=== PATIENT | female | born 1990 | race Caucasian/White ===

== ENCOUNTER 2023-11-22 12:39 | Emergency (ER) | payer MEDICAID, SELFPAY ==
[2023-11-22 12:45] VITALS: BP 116/57; PULSE 112; TEMP 36.3; BMI 21.4
[2023-11-22 13:16] LABS: Basophils % 0.3 %; Eosinophils % 0.2 %; Lymphocytes # 1.5 10^3/uL (0.8-4.8); Mean Corpuscular HGB Conc 30.6 g/dL (30-55); Mean Corpuscular Hemoglobin 26.8 pg (27-33); Mean Corpuscular Volume 87.4 fl (85-98); Mean Platelet Volume 8.7 fL (7.4-10.4); Monocytes # 0.8 10^3/uL (0.2-0.9); Neutrophils # 8.59 10^3/uL (1.8-7.7); Neutrophils % 78.1 %; Nucleated Red Blood Cells % 0 %; Platelet Count 263 10^3/cmm (157-399); Red Blood Count 3.66 10^6/uL (3.85-5.65); Red Cell Distribution Width 21.3 % (12.1-15.1); White Blood Count 10.99 10^3/uL (3.29-11.43)
--- NOTE | 2023-11-22 13:17 | ED_ITS ---
HPI - Weakness 2 General: Chief complaint: Weakness Stated complaint: leg weakness Time Seen by Provider: 11/22/23 12:40 History of Present Illness: 33-year-old female presents to the emerg ency department with complaints of feeling increased weakness and fatigue worsening since yesterday. She states she feels more weak in her legs compared to yesterday. She was seen yesterday at [facility] and was found to have low potassium and given potassium infusions as well as magnesium. Patient was also advised that she had a urinary tract infection at that time. Patient does appear to be very pale but states she has heavy irregular menstrual cycles. She states that she also drinks 5-6 times a week and when she does it is 5 or 6 shots of whiskey. She also states that she smokes as well. She denies chest pain, nausea or vomiting dizziness or lightheaded feeling. She does endorse several episodes of diarrhea over the previous 3 to 4 days, otherwise she states she just feels overall weakness. Review of Systems 2 General: Reports: 10 or more systems reviewed and unremarkable except in HPI and below Const: Reports: fatigue and malaise GI: Reports: diarrhea PFSH ED 2 PFSH: Surgical History (Updated 08/19/23 @ 10:58 by LYNDSEY Keys) Status post tubal ligation Family History Mother Hypertension Social History Smoking and tobacco/nicotine status: current every day tobacco/nicotine user Physical Exam 2 Narrative: EXAM NARRATIVE: Constitutional: the patient appears well nourished and with normal development. Vital signs reviewed as documented. HENMT: Normocephalic, atraumatic. External ears normal appearance without drainage. Nose without drainage, normal appearance. Mucus membranes moist. Neck is supple, No jugular venous distension, trachea is midline, no appreciable carotid bruits. No lymphadenopathy. No meningeal signs. Flexion, extension and lateral rotation is without pain. Eyes: Pupils are equal, round, reactive to light and accommodation. No scleral icterus. Extra-ocular movement are intact. Thorax is symmetrical and with equal rise and fall with respirations. Resp: Lungs are clear to auscultation. No wheezes, rales, crackles or ronchi at present. Cardio: Regular rate and rhythm. Positive S1, S2. No appreciable murmurs, rubs or gallops. GI: Abdominal exam reveals normal bowel sounds to all quadrants. No organomegaly. No obvious palpable masses noted. No hepatomegally appreciated. Soft, non-tender to palpation. Extremity: Extremities are non-edematous and both femoral and pedal pulses are 2+ and equal bilaterally. Moves all extremities well, sensation in all extremities. Neuro: Alert and oriented x4, person, place, time and situation. Cranial nerves II through XII are grossly intact, there is no focal neurological deficits that I can appreciate at present. Motor strength in the upper and lower extremities are equal and bilateral 5/5. Psych: Cooperative, calm, normal thought process, appropriate judgment. Skin: No lesions, rashes. No gross abnormalities noted. Back: Symmetrical, no obvious deformity, No CVA tenderness Course 2 Reevaluation(s): Reevaluation #1: I had an extensive discussion with the patient approximately 25 minutes regarding side effects of alcohol abuse and use. 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 I have provided her Rocephin as well as IV Zofran. I will discharge the patient and have her follow-up primary care provider. Time: 15:25 Vital Signs: Vital signs: Vital Signs Temperature 97.4 F L 11/22/23 12:45 Pulse Rate 118 H 11/22/23 15:58 Blood Pressure 93/52 11/22/23 15:58 Pulse Oximetry 100 11/22/23 15:58 Oxygen Delivery Me thod Room Air 11/22/23 12:45 MDM - Weakness Medical Decision Making Will obtain laboratory evaluation to include a CBC, CMP, urinalysis, magnesium. An EKG and lipase given the amount that the patient reported that she drinks. Medical Records I reviewed the patient's medical records. Lab Data I reviewed the patient's lab results. 11/22/23 13:10 11/22/23 13:10 Laboratory Results WBC 10.99 10^3/uL (3.29-11.43) 11/22/23 13:10 RBC 3.66 10^6/uL (3.85-5.65) L 11/22/23 13:10 Hgb 9.80 g/dL (11.27-16.99) L 11/22/23 13:10 Hct 32.0 % (36-47) L 11/22/23 13:10 MCV 87.4 fl (85-98) 11/22/23 13:10 MCH 26.8 pg (27-33) L 11/22/23 13:10 MCHC 30.6 g/dL (30-55) 11/22/23 13:10 RDW 21.3 % (12.1-15.1) H 11/22/23 13:10 Plt Count 263 10^3/cmm (157-399) 11/22/23 13:10 MPV 8.7 fL (7.4-10.4) 11/22/23 13:10 Neut % (Auto) 78.1 % 11/22/23 13:10 Lymph % (Auto) 14.0 % 11/22/23 13:10 [place] % (Auto) 7.0 % 11/22/23 13:10 Eos % (Auto) 0.2 % 11/22/23 13:10 Baso % (Auto) 0.3 % 11/22/23 13:10 Neut # (Auto) 8.59 10^3/uL (1.8-7.7) H 11/22/23 13:10 Lymph # (Auto) 1.5 10^3/uL (0.8-4.8) 11/22/23 13:10 [place] # (Auto) 0.8 10^3/uL (0.2-0.9) 11/22/23 13:10 Eos # (Auto) 0.0 10^3/uL (0.0-0.8) 11/22/23 13:10 Baso # (Auto) 0.0 10^3/uL (0.0-0.1) 11/22/23 13:10 Nucleated RBC % (auto) 0 % 11/22/23 13:10 Nucleated RBCs # 0.0 /100WBC 11/22/23 13:10 Sodium 134 mmol/L (136-145) L 11/22/23 13:10 Potassium 3.1 mmol/L (3.5-5.1) L 11/22/23 13:10 Chloride 98 mmol/L (98-107) 11/22/23 13:10 Carbon Dioxide 12 mmol/L (22-29) L 11/22/23 13:10 Anion Gap 27.1 (5-19) H 11/22/23 13:10 BUN 5 mg/dL (6-20) L 11/22/23 13:10 Creatinine 0.5 mg/dL (0.5-0.9) 11/22/23 13:10 GFR Calculation 142.1 mL/min (90-130) H 11/22/23 13:10 Glucose 120 mg/dL (65-115) H 11/22/23 13:10 Calculated Osmolality 276 mOsm/kg (285-295) L 11/22/23 13:10 Calcium 8.8 mg/dL (8.5-10.5) 11/22/23 13:10 Magnesium 1.9 mg/dL (1.7-2.3) 11/22/23 13:10 Total Bilirubin 0.9 mg/dL (0.15-1.2) 11/22/23 13:10 AST 52 U/L (0-32) H 11/22/23 13:10 ALT 36 U/L (0-33) H 11/22/23 13:10 Alkaline Phosphatase 101 U/L (35-105) 11/22/23 13:10 Total Protein 7.2 g/dL (6.6-8.7) 11/22/23 13:10 Albumin 3.5 g/dL (3.5-5.2) 11/22/23 13:10 Globulin 3.7 g/dL (1.3-4.6) 11/22/23 13:10 Lipase 49 U/L (13-60) 11/22/23 13:10 HCG, Qual Negative (Negative) 11/22/23 13:51 Urine Color Yellow (Yellow) 11/22/23 13:51 Urine Appearance Sl hazy (CLEAR) A 11/22/23 13:51 Urine pH 5 (5-7) 11/22/23 13:51 Ur Specific [place] 1.025 (1.005-1.030) 11/22/23 13:51 Urine Protein Trace (Negative) 11/22/23 13:51 Urine Glucose (UA) Norm (Normal) 11/22/23 13:51 Urine Ketones 2+ (Negative) H 11/22/23 13:51 Urine Blood 3+ (Negative) H 11/22/23 13:51 Urine Nitrate Negative (Negative) 11/22/23 13:51 Urine Bilirubin 1+ (Negative) H 11/22/23 13:51 Urine Urobilinogen 4 mg/dL (Negative) H 11/22/23 13:51 Ur Leukocyte Esterase 2+ (Negative) H 11/22/23 13:51 Urine RBC 5-10 /hpf (0-2) H 11/22/23 13:51 Urine WBC 25-40 /hpf (0-5) H 11/22/23 13:51 Ur Squamous Epith Cells 5-10 /hpf (0-5) H 11/22/23 13:51 Amorphous Sediment Trace /hpf 11/22/23 13:51 Urine Bacteria 2+ /hpf (NONE) H 11/22/23 13:51 Urine Mucus Trace /hpf 11/22/23 13:51 Urine Opiates Screen Negative ng/mL (Negative) 11/22/23 13:51 Ur Barbiturates Screen Negative ng/mL (Negative) 11/22/23 13:51 Ur Phencyclidine Scrn Negative ng/mL (Negative) 11/22/23 13:51 Ur Amphetamines Screen Negative ng/mL (Negative) 11/22/23 13:51 U Benzodiazepines Scrn Negative ng/mL (Negative) 11/22/23 13:51 Urine Cocaine Screen Negative ng/mL (Negative) 11/22/23 13:51 U Marijuana (THC) Screen Negative ng/mL (Negative) 11/22/23 13:51 Ethyl Alcohol 46 mg/dL (0-10) H 11/22/23 13:10 No radiology studies performed this visit Discharge Plan Discharge Patient Disposition: Home Clinical Impression: Alcohol abuse UTI (urinary tract infection) Qualifiers: Urinary tract infection type: acute cystitis Hematuria presence: without hematuria Qualified Code(s): N30.00 - Acute cystitis without hematuria Condition: Stable Prescriptions: New ondansetron HCl 4 mg tablet 4 mg PO Q12H 5 Days Qty: 10 0RF Discharge Orders: Discharge ED (Routine); Ordered 11/22/23 Ordered By: Keshav Esparza Referrals: Aditya Swain MD [Primary Care Provider] - Discharge Diet: Advance as tolerated Discharge Activity: Resume usual activity Patient Instructions: Opioid Safety, Pain Management Activity Restrictions/Additional Instructions: Activity Restrictions/Additional Instructions: Thank you for choosing [facility] for your healthcare needs today. Please realize that you were seen in the Emergency Department and that we are providing you with an emergency medical screening exam and this may not be a complete and all inclusive of all the testing and or medical work-up that you may need to determine your ailment or severity of your illness. It is very important that you follow-up as instructed with your Primary care provider or Specialist for additional evaluation and to discuss your medical treatment plan. You may return to the Emergency Department should you have concerns or if your condition changes or worsens in any way. Coding Level of Care Code ED Book Binder for Adalid Viera
[2023-11-22 13:20] VITALS: BP 102/51; PULSE 118; O2SAT 95
--- NOTE | 2023-11-22 13:27 | ECG_ITS ---
[facility] Test Date: 2023-11-22 Pat Name: Neema Toledo Department: Room: Gender: Female Supervisor Filling And Packing: : [id number] Requested By: Keshav Esparza Order Number: [id number] Bryant MD: Dillon Weinberg M.D. Measurements Intervals [place] Rate: 110 P: 62 MA: 139 QRS: 62 QRSD: 86 T: 66 QT: 382 QTc: 517 Interpretive Statements SINUS TACHYCARDIA POSSIBLE LEFT ATRIAL ENLARGEMENT [-0.1mV P-WAVE IN V1/V2] POSSIBLE RIGHT VENTRICULAR CONDUCTION DELAY [RSR (QR) IN V1/V2] No previous ECG available for comparison Electronically Signed On 11-22-2023 15:43:36 CALCULUS TEACHER by Dillon Weinberg M.D. [id number]
[2023-11-22 13:34] LABS: Alanine Aminotransferase 36 U/L (0-33); Albumin Level 3.5 g/dL (3.5-5.2); Alkaline Phosphatase 101 U/L (35-105); Anion Gap 27.1 (5-19); Aspartate Amino Transferase 52 U/L (0-32); Blood Urea Nitrogen 5 mg/dL (6-20); Calcium 8.8 mg/dL (8.5-10.5); Carbon Dioxide 12 mmol/L (22-29); Chloride 98 mmol/L (98-107); Globulin 3.7 g/dL (1.3-4.6); Glomerular Filtration Rate 142.1 mL/min (90-130); Glucose 120 mg/dL (65-115); Magnesium 1.9 mg/dL (1.7-2.3); Osmolality Calculated 276 mOsm/kg (285-295); Potassium 3.1 mmol/L (3.5-5.1); Sodium 134 mmol/L (136-145); Total Bilirubin 0.9 mg/dL (0.15-1.2); Total Protein 7.2 g/dL (6.6-8.7)
[2023-11-22 13:41] LABS: Alcohol Level 46 mg/dL (0-10); Lipase 49 U/L (13-60)
[2023-11-22] MEDS: magnesium oxide 400 mg tablet PO (13:56)
[2023-11-22] MEDS: potassium chloride ER 20 mEq Tablet 40 MEQ PO (13:56)
[2023-11-22 14:00] VITALS: BP 101/54; PULSE 109; O2SAT 95
[2023-11-22 14:13] LABS: Amphetamines Screen Urine Negative (Negative); Barbiturates Screen Urine Negative (Negative); Benzodiazepines Screen Urine Negative (Negative); Cocaine Screen Urine Negative (Negative); HCG Qualitative Urine. Negative (Negative); Opiate Screen Urine Negative (Negative); PCP Screen Urine Negative (Negative); THC Screen Urine Negative (Negative)
[2023-11-22 14:20] LABS: Add Urine Microscopic? YES; Blood Urine 3+ (Negative); Glucose Urine UA Norm (Normal); Ketones Urine 2+ (Negative); Leukocyte Esterase Urine 2+ (Negative); Nitrate Urine Negative (Negative); Protein Urine Trace (Negative); Specific Gravity, Urine 1.025 (1.005-1.030); Urine Appearance SL Hazy (CLEAR); Urine Color Yellow (Yellow); Urobilinogen Urine 4 mg/dL (Negative); pH Urine 5 (5-7)
[2023-11-22 14:21] LABS: Amorphous Sediment Urine TRACE /hpf; Bacteria Urine 2+ /hpf; Bilirubin Urine 1+ (Negative); Mucus Urine TRACE /hpf; WBC Urine 25-40 /hpf (0-5)
[2023-11-22 14:22] LABS: Add Urine Culture? Yes
[2023-11-22 14:30] VITALS: BP 91/48; PULSE 116; O2SAT 99
[2023-11-22 15:00] VITALS: BP 98/50; PULSE 121; O2SAT 100
[2023-11-22] MEDS: ondansetron 2 mg/ML SDV 2 mL 4 MG IVP (15:12)
[2023-11-22] MEDS: cefTRIAXone 1,000 MG in sodium chloride 0.9% (plus) 50 ML 100 MG IV (15:13)
[2023-11-22 15:58] VITALS: BP 93/52; PULSE 118; O2SAT 100
== END 2023-11-22 15:59 | disposition home or self-care (01) ==
PROVIDERS: Emergency Provider Internal Medicine; PCP Family Medicine
DX: N30.00 Acute cystitis without hematuria (principal); F10.10 Alcohol abuse, uncomplicated; Y90.2 Blood alcohol level of 40-59 mg/100 ml; Z72.0 Tobacco use
CPT/HCPCS: 36415; 80053; 80306; 80307; 81001; 81025; 83690; 83735; 85025; 87086; 93005; 96374; 96375; 99284; J0696; J2405

== ENCOUNTER → 2024-02-09 09:56 | Outpatient (BNVA) | payer MEDICAID, SELFPAY | PROVIDERS: PCP Family Medicine; Visit Provider Nurse Practitioner Family | DX: D64.9 Anemia, unspecified (principal); E87.6 Hypokalemia; Z78.9 Other specified health status; N92.1 Excessive and frequent menstruation with irregular cycle | CPT/HCPCS: 80053; 85025; 87070; 87205; 88175 ==

== ENCOUNTER → 2025-04-02 10:54 | Outpatient (BNVA) | payer MEDICAID, SELFPAY | PROVIDERS: PCP Nurse Practitioner Family; Visit Provider Nurse Practitioner Family | DX: D64.9 Anemia, unspecified (principal); E87.6 Hypokalemia; I10 Essential (primary) hypertension; R53.83 Other fatigue | CPT/HCPCS: 80053; 80061; 84443; 85025 ==

== ENCOUNTER → 2025-05-15 12:00 | Outpatient (BNVA) | payer MEDICAID, SELFPAY | PROVIDERS: PCP Nurse Practitioner Family; Visit Provider Nurse Practitioner Family | DX: D64.9 Anemia, unspecified (principal) | CPT/HCPCS: 82607; 83550; 85025 ==

== ENCOUNTER 2025-05-25 15:39 | Outpatient (CLI) | payer MEDICAID, SELFPAY ==
--- NOTE | 2025-05-25 16:15 | US_ITS ---
WS: [id number] US pelv w/transvag [id number] HISTORY: N92.1 - Excessive and frequent menstruation with irregula... COMPARISON: 10/02/2019 Uterus: 7.2 cm x 5.8 cm x 3.9 cm. Normal size anteverted uterus. No fibroid or mass. Endometrium: 1.8 cm. Fluid along the endometrial canal. Focal area of endometrial thickening towards the fundal portion of the endometrium. Thickening of the endometrial lining is of increased echogenicity with a few cystic components. The remaining endometrium is very thin and atrophic. Right ovary: 3.2 cm x 1.9 cm x 2.5 cm. Normal size and vascularity, no cystic or solid masses. Left ovary: Not identified. Small to moderate amount of free fluid in the cul-de-sac is slightly more than normal. US/US pelv w/transvag [id number] IMPRESSION: 1. Asymmetric focal thickening involving the endometrium, thickening is toward s the fundal portion of the endometrium. The remaining endometrium is atrophic. Recommend direct visualization and possible biopsy secondary to the asymmetry. This is new since 10/02/2019. 2. LEFT ovary not identified. 3. Slightly more than physiologic free fluid in the pelvis. This may be due to to a ruptured ovarian cyst.
== END 2025-05-25 15:40 | disposition home or self-care (01) ==
LOC: RAD 15:42
PROVIDERS: PCP Nurse Practitioner Family; Visit Provider Nurse Practitioner Family
DX: N92.1 Excessive and frequent menstruation with irregular cycle (principal)
CPT/HCPCS: 76830; 76856

== ENCOUNTER → 2025-06-14 10:40 | Outpatient (BNVA) | payer MEDICAID, SELFPAY | PROVIDERS: PCP Nurse Practitioner Family; Visit Provider Nurse Practitioner Family | DX: R53.83 Other fatigue (principal); I10 Essential (primary) hypertension; E78.5 Hyperlipidemia, unspecified | CPT/HCPCS: 80053; 80061; 85025 ==